=== PATIENT | female | born 1975 | race African-American/Black ===

== ENCOUNTER 2020-04-26 10:07 | Day surgery (SDC) | payer OTHER, SELFPAY ==
[~2020-04-26] VITALS: Ht 167.6 cm; Wt 80.7 kg
[2020-04-26] MEDS ORDERED: MIDAZOLAM 2 MG/2 ML VIAL ONE (12:58)
[2020-04-26] MEDS ORDERED: fentaNYL citrate 0.05 MG/ML VIAL ONE (12:58)
[2020-04-26] MEDS ORDERED: LIDOCAINE 2% 100 MG/5 ML UJET TP ONE (12:59)
[2020-04-26] MEDS ORDERED: MIDAZOLAM 2 MG/2 ML VIAL IVP ONE (16:05)
== END 2020-04-26 13:45 | disposition home or self-care (01) ==
LOC: MDS 10:07 → MMU 10:34 → MDS 13:45
PROVIDERS: ATTEND Internal Medicine Gastroenterology
DX: R14.0 Abdominal distension (gaseous) (principal); K22.8 Other specified diseases of esophagus; Z20.828 Contact with and (suspected) exposure to other viral communicable diseases; K31.89 Other diseases of stomach and duodenum; K21.9 Gastro-esophageal reflux disease without esophagitis
CPT/HCPCS: 36415; 43239; 81025; 86677; J2250; U0003; J3010